=== PATIENT | male | born 1965 | race Asian ===

== ENCOUNTER → 2017-05-14 | Outpatient (CLI) | payer OTHER ==
--- NOTE | ~2017-05-14 | CR61 ---
[facility] A Service of [facility] & [facility] RADIOLOGY TEXT RESULTS PATIENT: KATHERINE BARAJAS LOCATION: [facility] : 65 UNIT #: [id number] AGE: [address]: Danna Isaacs MD SEX: M ORDER DR: [id number] [facility] [address] [place], [place] [address] [id number] O MR#: [id number] Acc #: [id number] NAME: KATHERINE BARAJAS : 1965 SEX: M STUDY DATE/TIME: 05/14/2017 16:30 UNIT: [facility] ROOM: STUDY DESCRIPTION: CR Cervical Spine Min 5 Views Attending Physician: Danna Isaacs M.D. Referring Physician: Danna Isaacs M.D. Ordering Physician: Danna Isaacs M.D. MEDICAL IMAGING REPORT This report is preliminary unless electronic signature is present EXAM Cervical spine 7 views 05/14/2017 HISTORY Neck pain with right upper extremity radiculopathy, right upper extremity pain for 2 years. No known injury. FINDINGS 7 views of the cervical spine demonstrate no fracture. The posterior vertebral body line is intact and there is no anterolisthesis or retrolisthesis. There is degenerative change with mild disc space narrowing at C6-C7 with anterior and posterior osteophytes at the C6-C7 level. There is no retropharyngeal soft tissue swelling. IMPRESSION Mild degenerative change at C6-C7. No acute abnormality in the cervical spine. Dictated by... Walter Newberry M.D. THIS IS AN ELECTRONICALLY VERIFIED REPORT Walter Newberry M.D. at 05/15/2017 2:18 PM KRT/asya TD: 05/14/2017 22:39 JOB #: [id number] MEDICAL IMAGING REPORT Page 1 of 1 COPY
--- NOTE | ~2017-05-14 | CR63 ---
[facility] A Service of [facility] & [facility] RADIOLOGY TEXT RESULTS PATIENT: KATHERINE BARAJAS LOCATION: [facility] : 65 UNIT #: [id number] AGE: [address]: Danna Isaacs MD SEX: M ORDER DR: [id number] [facility] [address] [place], [place] [address] [id number] O MR#: [id number] Acc #: [id number] NAME: KATHERINE BARAJAS : 1965 SEX: M STUDY DATE/TIME: 05/14/2017 16:30 UNIT: [facility] ROOM: STUDY DESCRIPTION: CR Chest 2 View Attending Physician: Danna Isaacs M.D. Referring Physician: Danna Isaacs M.D. Ordering Physician: Danna Isaacs M.D. MEDICAL IMAGING REPORT This report is preliminary unless electronic signature is present EXAM Chest PA and lateral 05/14/2017 HISTORY Chest pain and right upper extremity pain for 3.5 months. No known injury. FINDINGS PA and lateral examination of the chest upright shows a good expansion of the parenchyma with a normal distribution of the pulmonary vascularity. There is no indication of congestion, effusion, infiltrate, tumor, or nodular density. The pleural reflections and diaphragmatic contours are normal. The cardiac silhouette and mediastinal anatomy is within normal limits. IMPRESSION Normal chest. Dictated by... Walter Newberry M.D. THIS IS AN ELECTRONICALLY VERIFIED REPORT Walter Newberry M.D. at 05/15/2017 2:18 PM KRT/pcl TD: 05/14/2017 22:38 JOB #: [id number] MEDICAL IMAGING REPORT Page 1 of 1 COPY
== END | disposition home or self-care (01) ==
LOC: CRAD 15:57
DX: M54.12 Radiculopathy, cervical region (principal); M50.323 Other cervical disc degeneration at C6-C7 level; R07.9 Chest pain, unspecified
CPT/HCPCS: 71020; 72050